=== PATIENT | male | born 1975 | race Caucasian/White ===

== ENCOUNTER 2018-07-06 07:48 | Emergency (ER) | payer SELFPAY ==
[2018-07-06] MEDS ORDERED: METHYLPREDNISOLONE 125 MG INJ ONE (07:59)
[2018-07-06] MEDS ORDERED: EPINEPHRINE/PF 1 MG/ML AMP ONE (07:59)
[2018-07-06] MEDS ORDERED: FAMOTIDINE 20 MG/2 ML VIAL IV ONE (07:59)
[2018-07-06] MEDS ORDERED: NA CHLORIDE 0.9% 1,000 ML ONE (08:10)
[2018-07-06 08:18] LABS: Absolute Lymphocytes (CBC) 3.4 K/uL (0.7-4.9); Absolute Monocytes 0.6 K/uL (0.1-1.3); Absolute Neutrophil 4.8 K/uL (1.8-8.0); Basophils % 0.4 % (0-1.3); Eosinophils % 1.5 % (0-4.4); Hematocrit 48.2 % (39.6-49.0); Lymphocytes % 37.5 % (15.3-44.8); MCH 30.5 pg (27.0-35.0); MCV 86.4 fL (80-100); MPV 9.1 fL (7.6-11.3); Monocytes % 7.1 % (3.3-12.3); RBC Red Blood Cell Count 5.58 M/uL (4.33-5.43)
[2018-07-06 08:33] LABS: Potassium 3.7 mmol/L (3.5-5.1)
--- NOTE | 2018-07-06 10:40 | ER ---
Nurse's Notes [facility] Name: Merrill Wynn Age: 42 yrs Sex: Male : 1975 Arrival Date: 07/06/2018 Time: 07:51 Bed 7 Private MD: Diagnosis: Anaphylactic reaction due to other serum-Insect Bite Presentation: 07/06 07:53 Presenting complaint: Patient states: swelling to lips and tounge, started about 20 ch mins ago. Transition of care: patient was not received from another setting of care. Onset: The symptoms/episode began/occurred acutely, 30 minute(s) ago. Anaphylaxis evaluation, the patient reports or I have noted the following symptoms which indicate a significant risk of anaphylaxis: lightheadedness lump in the throat which may suggest laryngeal edema shortness of breath . The patient has been moved to a treatment room and the charge nurse or attending physician has been notified. Onset of symptoms was July 06, 2018 at 07:25. Risk Assessment: Do you want to hurt yourself or someone else? Patient reports no desire to harm self or others. Initial Sepsis Screen: Does the patient meet any 2 criteria? No. Patient's initial sepsis screen is negative. Does the patient have a suspected source of infection? No. Patient's initial sepsis screen is negative. Care prior to arrival: Medication(s) given: benadryl. 07:53 Method Of Arrival: Ambulatory 07:53 Acuity: VIDA 2 ch Triage Assessment: 07:55 General: Appears distressed, uncomfortable, Behavior is cooperative, anxious, restless. Pain: Complains of pain in tongue. Historical: - Allergies: 07:55 bug bites unknown; - Home Meds: 07:55 Lisinopril Oral [Active]; - PMHx: 07:55 Hypertension; allergic reactions; - PSHx: 07:55 Hernia repair; - Immunization history:: Adult Immunizations up to date, Last tetanus immunization: up to date Flu vaccine is not up to date. - Social history:: Smoking status: Patient/guardian denies using tobacco, Patient uses alcohol, occasionally. - Ebola Screening: : Patient negative for fever greater than or equal to 101.5 degrees Fahrenheit, and additional compatible Ebola Virus Disease symptoms Patient denies exposure to infectious person Patient denies travel to an Ebola-affected area in the 21 days before illness onset No symptoms or risks identified at this time. Screenin:20 Abuse screen: Denies threats or abuse. Nutritional screening: No deficits noted. tw2 Tuberculosis screening: No symptoms or risk factors identified. Fall Risk None identified. Assessment: 07:55 General: Appears in no apparent distress. obese, Behavior is anxious. Pain: Denies tw2 pain. Neuro: Level of Consciousness is awake, alert, obeys commands, Oriented to person, place, time, situation. Cardiovascular: Denies chest pain, Heart tones S1 S2 Patient's skin is warm and dry. Respiratory: Airway is patent Respiratory effort is even, unlabored, Respiratory pattern is regular, symmetrical, Breath sounds are clear bilaterally. GI: No signs and/or symptoms were reported involving the gastrointestinal system. Abdomen is round obese, Bowel sounds present X 4 quads. : No signs and/or symptoms were reported regarding the genitourinary system. EENT: swelling of the tongue noted. Derm: Skin temperature is warm. Musculoskeletal: Range of motion: intact in all extremities. 08:00 Reassessment: Patient appears in no apparent distress at this time. Patient and/or tw2 family updated on plan of care and expected duration. Pain level reassessed. Patient is alert, oriented x 3, equal unlabored respirations, skin warm/dry/pink. after Epi was given, pt states "i dont like the way i feel right now", pt encouraged to take slow need breaths, HR noted to 116, provider notified. 08:46 Reassessment: Patient appears in no apparent distress at this time. Patient and/or tw2 family updated on plan of care and expected duration. Pain level reassessed. Patient is alert, oriented x 3, equal unlabored respirations, skin warm/dry/pink. 09:30 Reassessment: Patient appears in no apparent distress at this time. Patient and/or tw2 family updated on plan of care and expected duration. Pain level reassessed. Patient is alert, oriented x 3, equal unlabored respirations, skin warm/dry/pink. 10:11 Reassessment: Patient appears in no apparent distress at this time. Patient and/or tw2 family updated on plan of care and expected duration. Pain level reassessed. Patient is alert, oriented x 3, equal unlabored respirations, skin warm/dry/pink. provider at bedside at this time. 11:00 Reassessment: Patient appears in no apparent distress at this time. Patient and/or tw2 family updated on plan of care and expected duration. Pain level reassessed. Patient is alert, oriented x 3, equal unlabored respirations, skin warm/dry/pink. 11:51 Reassessment: Patient appears in no apparent distress at this time. Patient and/or tw2 family updated on plan of care and expected duration. Pain level reassessed. Patient is alert, oriented x 3, equal unlabored respirations, skin warm/dry/pink. Vital Signs: 07:55 BP 113 / 74; Pulse 122; Resp 24; Temp 97.5(O); Pulse Ox 99% on R/A; Weight 136.08 kg; Height 5 ft. 6 in. (167.64 cm); Pain 6/10; 08:11 BP 154 / 77; Pulse 100; Resp 19; Pulse Ox 100% on R/A; tw2 08:30 BP 127 / 52; Pulse 94; Resp 17; Pulse Ox 96% ; sv 09:00 BP 118 / 60; Pulse 90; Resp 11; Pulse Ox 98% ; sv 09:30 BP 112 / 62; Pulse 87; Resp 13; Pulse Ox 97% ; sv 09:30 BP 112 / 62; Pulse 87; Resp 14; Pulse Ox 97% on R/A; tw2 10:00 BP 119 / 74; Pulse 85; Resp 20; Pulse Ox 97% ; sv 11:00 BP 126 / 82; Pulse 82; Resp 17; Pulse Ox 100% on R/A; tw2 11:00 BP 124 / 71; Pulse 89; Resp 16; Pulse Ox 96% on R/A; tw2 07:55 Body Mass Index 48.42 (136.08 kg, 167.64 cm) ED Course: 07:51 Patient arrived in ED. sb2 07:52 Claudia Reddy, RN is Primary Nurse. 07:52 Placed in gown. Bed in low position. dynamite packing machine operator on. Pulse ox on. NIBP on. tw2 07:54 Triage completed. 07:55 Arm band placed on left wrist. Patient placed in an exam room, on a stretcher, on rn cardiac, on pulse oximetry, hood page notified, hood page at bedside. 07:56 Hood Greenberg PA is PHCP. cp 07:56 Daniel Bowden MD is Attending Physician. cp 08:00 Inserted saline lock: 20 gauge in right antecubital area, using aseptic technique. ch Blood collected. started by mónica jackson 08:10 aNncy Rosales, RN is Primary Nurse. tw2 08:18 EKG done, by appraisal technician. reviewed by Hood STOVER. at1 10:05 EKG done, by appraisal technician. reviewed by Hood STOVER Repeat EKG. at1 11:52 No provider procedures requiring assistance completed. IV discontinued, intact, tw2 bleeding controlled, No redness/swelling at site. Pressure dressing applied. Administered Medications: 07:58 Drug: EPINEPHrine 1mg/mL 1:1,000 0.2 ml {Note: Given IV Right Thelma HUSAIN PA tw2 notified..} Route: Sub-Q; Site: right upper arm; 08:02 Drug: Pepcid 20 mg Route: IVP; Site: right antecubital; tw2 08:03 Drug: SOLU-Medrol 125 mg Route: IVP; Site: right antecubital; tw2 08:10 Drug: NS 0.9% 1000 ml Route: IV; Rate: 1 bolus; Site: right antecubital; tw2 Outcome: 10:26 Discharge ordered by MD. cp 11:52 Discharged to home ambulatory, with family. tw2 11:52 Condition: stable 11:52 Discharge instructions given to patient, family, Instructed on discharge instructions, follow up and referral plans. no drinking with medication, no driving heavy equipment, medication usage, Demonstrated understanding of instructions, follow-up care, medications, Prescriptions given X 3. 11:54 Patient left the ED. tw2 Signatures: Claudia Reddy, RN RN Radha Duncan RN Edel Green, plastic cablemaking machine operator EKG Tat1 Hood Greenberg PA PA cp Wise, Tara, RN RN tw2 Mireille Gerber sb2
--- NOTE | 2018-07-06 10:41 | EDPHYS ---
Physician Documentation [facility] Name: Merrill Wynn Age: 42 yrs Sex: Male : 1975 Arrival Date: 07/06/2018 Time: 07:51 Bed 7 Private MD: ED Physician Daniel Bowden HPI: 07/06 07:58 This 42 yrs old Male presents to ER via Ambulatory with complaints of cp Allergic Reaction. 07:58 The patient presents with swelling of the tongue. Onset: The symptoms/episode cp began/occurred 45 minute(s) ago. Possible causes: insect bite. At home the patient or guardian has treated the symptoms with Benadryl. 07:58 Severity of symptoms: in the emergency department the symptoms are unchanged despite cp home interventions. Historical: - Allergies: 07:55 bug bites unknown; ch - Home Meds: 07:55 Lisinopril Oral [Active]; ch - PMHx: 07:55 Hypertension; allergic reactions; ch - PSHx: 07:55 Hernia repair; ch - Immunization history:: Adult Immunizations up to date, Last tetanus immunization: up to date Flu vaccine is not up to date. - Social history:: Smoking status: Patient/guardian denies using tobacco, Patient uses alcohol, occasionally. - Ebola Screening: : Patient negative for fever greater than or equal to 101.5 degrees Fahrenheit, and additional compatible Ebola Virus Disease symptoms Patient denies exposure to infectious person Patient denies travel to an Ebola-affected area in the 21 days before illness onset No symptoms or risks identified at this time. ROS: 08:05 Constitutional: Negative for body aches, chills, fever, poor PO intake. cp 08:05 Eyes: Negative for injury, pain, redness, and discharge. cp 08:05 ENT: Positive for swelling of tongue, Negative for drainage from ear(s), ear pain, sore throat, difficulty swallowing, difficulty handling secretions. 08:05 Cardiovascular: Negative for chest pain, edema, palpitations. 08:05 Respiratory: Negative for cough, shortness of breath, wheezing. 08:05 Abdomen/GI: Negative for abdominal pain, nausea, vomiting, and diarrhea. 08:05 Skin: Negative for cellulitis, rash, swelling. 08:05 Neuro: Negative for altered mental status, headache, weakness. 08:05 All other systems are negative. Exam: 08:10 Constitutional: The patient appears in no acute distress, alert, awake, cp non-diaphoretic, non-toxic, well developed, well nourished, obese. 08:10 Head/Face: Normocephalic, atraumatic. Eyes: Pupils equal round and reactive to light, cp extra-ocular motions intact. Lids and lashes normal. Conjunctiva and sclera are non-icteric and not injected. Cornea within normal limits. Periorbital areas with no swelling, redness, or edema. 08:10 ENT: External ear(s): are unremarkable, Ear canal(s): are normal, clear, TM's: bulging, is not appreciated, bilaterally, dullness, bilaterally, erythema, is not appreciated, bilaterally, Nose: is normal, Mouth: Lips: moist, Oral mucosa: pink and intact, moist, Gums: normal with healthy appearance, Tongue: mild swelling noted, Posterior pharynx: Airway: no evidence of obstruction, patent, Tonsils: are normal in appearance, Uvula: midline, swelling, is not appreciated, erythema, is not appreciated, exudate, is not appreciated. 08:10 Neck: ROM/movement: is normal, is supple, without pain, no range of motions limitations, no nuchal rigidity, Lymph nodes: no appreciated lymphadenopathy. 08:10 Chest/axilla: Inspection: normal, Palpation: is normal, no crepitus, no tenderness. 08:10 Cardiovascular: Rate: tachycardic, Rhythm: regular, Edema: is not appreciated, JVD: is not appreciated. 08:10 Respiratory: the patient does not display signs of respiratory distress, Respirations: normal, no use of accessory muscles, no retractions, no splinting, no tachypnea, labored breathing, is not present, Breath sounds: are clear throughout, no decreased breath sounds, no stridor, no wheezing. 08:10 Abdomen/GI: Inspection: obese Bowel sounds: active, all quadrants, Palpation: abdomen is soft and non-tender, in all quadrants. 08:10 Skin: cellulitis, is not appreciated, no rash present. 08:10 Neuro: Orientation: to person, place \T\ time. Mentation: is normal, Cerebellar function: is grossly normal, Motor: moves all fours, strength is normal, Sensation: no obvious gross deficits. 08:22 ECG was reviewed by the Attending Physician. cp 10:05 ECG was reviewed by the Attending Physician. cp Vital Signs: 07:55 BP 113 / 74; Pulse 122; Resp 24; Temp 97.5(O); Pulse Ox 99% on R/A; Weight 136.08 kg; ch Height 5 ft. 6 in. (167.64 cm); Pain 6/10; 08:11 BP 154 / 77; Pulse 100; Resp 19; Pulse Ox 100% on R/A; tw2 08:30 BP 127 / 52; Pulse 94; Resp 17; Pulse Ox 96% ; sv 09:00 BP 118 / 60; Pulse 90; Resp 11; Pulse Ox 98% ; sv 09:30 BP 112 / 62; Pulse 87; Resp 13; Pulse Ox 97% ; sv 09:30 BP 112 / 62; Pulse 87; Resp 14; Pulse Ox 97% on R/A; tw2 10:00 BP 119 / 74; Pulse 85; Resp 20; Pulse Ox 97% ; sv 11:00 BP 126 / 82; Pulse 82; Resp 17; Pulse Ox 100% on R/A; tw2 11:00 BP 124 / 71; Pulse 89; Resp 16; Pulse Ox 96% on R/A; tw2 07:55 Body Mass Index 48.42 (136.08 kg, 167.64 cm) ch MDM: 08:00 Differential diagnosis: anaphylaxis, angioedema, Epiglottis urticaria. cp 08:03 Patient medically screened. cp 08:18 ED course: VSS. Patient reports tongue continues to feel swollen, but is not worsening. cp 10:21 ED course: VSS. Patient reports symptoms markedly improved with tongue swelling almost cp resolved and voice back to normal. 10:25 Data reviewed: vital signs, nurses notes, lab test result(s), and as a result, I will cp discharge patient. 10:25 Response to treatment: the patient's symptoms have markedly improved after treatment. cp 07/06 07:58 Order name: BMP; Complete Time: 08:54 cp 07/06 08:55 Interpretation: Normal except: CL 108; GLUC 134; GFR 82. cp 07/06 07:58 Order name: CBC with Diff; Complete Time: 08:54 cp 07/06 08:55 Interpretation: Normal except: RBC 5.58. cp 07/06 07:58 Order name: EKG; Complete Time: 07:59 cp 07/06 07:58 Order name: EKG - Nurse/Tech; Complete Time: 08:19 cp 07/06 11:46 Order name: EKG Electrocardiogram EDMD EC:22 Rate is 101 beats/min. Rhythm is regular. DC interval is normal. QRS interval is cp prolonged at 106 msec. QT interval is normal. Interpreted by me. Reviewed by me. 10:05 Rate is 84 beats/min. Rhythm is regular. DC interval is normal. QRS interval is cp prolonged at 104 msec. QT interval is normal. T waves are Inverted in lead III. Interpreted by me. Reviewed by me. Administered Medications: 07:58 Drug: EPINEPHrine 1mg/mL 1:1,000 0.2 ml {Note: Given IV Right ACThelma PA tw2 notified..} Route: Sub-Q; Site: right upper arm; 08:02 Drug: Pepcid 20 mg Route: IVP; Site: right antecubital; tw2 08:03 Drug: SOLU-Medrol 125 mg Route: IVP; Site: right antecubital; tw2 08:10 Drug: NS 0.9% 1000 ml Route: IV; Rate: 1 bolus; Site: right antecubital; tw2 Disposition: 16:56 Co-signature as Attending Physician, Daniel Bowden MD I agree with the assessment and kdr plan of care. Disposition: 07/06/18 10:26 Discharged to Home. Impression: Anaphylactic reaction due to other serum - Insect Bite. - Condition is Stable. - Discharge Instructions: Anaphylactic Reaction, Adult, Insect Bite. - Prescriptions for prednisone 50 mg Oral tablet - take 1 tablet by ORAL route once daily for 5 days; 5 tablet. Pepcid 20 mg Oral Tablet - take 1 tablet by ORAL route every 12 hours for 5 days; 10 tablet. EpiPen 0.3 mg Injection auto- injector - inject 1 pen by INTRAMUSCULAR route as directed Inject into the outer portion of the thigh, through clothing if necessary. Indicated in the emergency treatment of allergic reactions; 2 Kit. - Medication Reconciliation Form, Thank You Letter, Antibiotic Education, Prescription Opioid Use, Work release form form. - Follow up: Private Physician; When: 1 - 2 days; Reason: Recheck today's complaints. - Problem is new. - Symptoms have improved. Signatures: Dispatcher [employer] EDMS Claudia Reddy, RN RN Daniel Bowden MD MD [facility] Hood Greenberg PA PA cp Nancy Rosales RN RN tw2 Corrections: (The following items were deleted from the chart) 11:54 10:26 07/06/2018 10:26 Discharged to Home. Impression: Anaphylactic reaction due to tw2 other serum - Insect Bite. Condition is Stable. Forms are Medication Reconciliation Form, Thank You Letter, Antibiotic Education, Prescription Opioid Use. Follow up: Private Physician; When: 1 - 2 days; Reason: Recheck today's complaints. Problem is new. Symptoms have improved. cp
--- NOTE | 2018-07-06 11:29 | EKG ---
Test Date: 2018-07-06 Test Time: 08:14:50 Digital X Ray Service Engineer: BOO MEASUREMENT RESULTS: Intervals: Rate: 101 ND: 140 QRSD: 106 QT: 360 QTc: 466 [place]: P: 55 ND: 140 QRS: -14 T: 17 INTERPRETIVE STATEMENTS: Sinus tachycardia Cannot rule out Inferior infarct, age undetermined Cannot rule out Anterior infarct, age undetermined Abnormal ECG No previous ECG available for comparison Electronically Signed On 07-06-18 11:28:32 CDT by Berry Evans
--- NOTE | 2018-07-06 12:13 | EKG ---
Test Date: 2018-07-06 Test Time: 10:00:56 Railroad Signal Technician: BOO MEASUREMENT RESULTS: Intervals: Rate: 84 NM: 132 QRSD: 104 QT: 358 QTc: 423 [place]: P: 16 NM: 132 QRS: -26 T: 9 INTERPRETIVE STATEMENTS: Normal sinus rhythm Normal ECG Compared to ECG 07/06/2018 08:14:50 Sinus tachycardia no longer present Myocardial infarct finding no longer present Electronically Signed On 07-06-18 12:11:55 CDT by Berry Evans
== END 2018-07-06 11:54 | disposition home or self-care (01) ==
LOC: ER 07:48
DX: T78.3XXA Angioneurotic edema, initial encounter (principal); T80.59XA Anaphylactic reaction due to other serum, initial encounter; I10 Essential (primary) hypertension; Z91.038 Other insect allergy status
CPT/HCPCS: 36415; 80048; 85025; 93005; 96372; 96374; 96375; 99285; J0171; J2930; J7030